=== PATIENT | male | born 1975 | race Caucasian/White ===

== ENCOUNTER 2016-12-04 00:09 | Inpatient (IN) | payer OTHER ==
[2016-12-04] VITALS (23 sets, daily range): BP systolic 120–182; BP diastolic 53–93; PULSE 72–181; RESP 16–25; TEMP 98–98.9; O2SAT 92–98
[~2016-12-04] VITALS: Ht 177.8 cm; Wt 139.1 kg
[2016-12-04] MEDS ORDERED: SODIUM CHLORIDE 0.9% FLUSH 10 ML FLUSH IVF PRN (00:30)
[2016-12-04] MEDS ORDERED: SODIUM CHLOR 0.9% 1000 ML INJ 1,000 ML IV ONE ×3 (00:30→04:45)
--- NOTE | 2016-12-04 00:36 | PD ---
HPI . Suicidal ideation and alcohol intoxication Chief Complaint: Psych Time Seen by Provider: 00:26 Travel History International Travel<30 days: No Contact w/Intl Traveler<30days: No History of Present Illness HPI This patient is brought to us as a Lopez Act. His papers indicate that he was texting with a friend elida stating that he was going to kill himself. He states that he would do this by putting a gun to his head and pulling the trigger. Police officers report multiple guns in the house. The patient admits to drinking a large amount of alcohol today. He states that he binge drinks. He states that he has suffered alcohol withdrawal before. He reports an "allergy" to Ativan in that he hallucinated after being given Ativan for alcohol withdrawal. His symptoms are severe in that he is suicidal and has access to guns. The modifying factor is that he is intoxicated. The patient reports that these symptoms are recurrent. The patient states that he has a history of paroxysmal AF. He feels that he has been in atrial fibrillation for the last couple of hours. He states that he is supposed to take atenolol for the atrial fibrillation but that they would not give it to him at [facility]. [facility] Social History Tobacco Use: No Allergies-Medications (Allergen,Severity, Reaction): Coded Allergies: lorazepam (Verified Allergy, Unknown, 12/04/16) states he hallucinates metformin (Verified Allergy, Unknown, 12/04/16) Review of Systems Except as stated in HPI: all other systems reviewed are Neg Psychiatric: Positive: Depression, Suicidal Ideations, Substance Abuse Physical Exam Narrative GENERAL: Patient is lucid. He does not appear to be in any distress. SKIN: warm/dry. HEAD: Normocephalic. Atraumatic. EYES: Pupils equal and round. No scleral icterus. No injection or drainage. ENT: No nasal bleeding or discharge. Mucous membranes pink and moist. NECK: Trachea midline. Full range of motion without pain.. CARDIOVASCULAR: Irregularly irregular rate and rhythm. RESPIRATORY: No accessory muscle use. GASTROINTESTINAL: Abdomen soft. Nondistended. MUSCULOSKELETAL: No obvious deformities. NEUROLOGICAL: Awake and alert. No obvious cranial nerve deficits. Motor grossly within normal limits. Normal speech. PSYCHIATRIC: He seems angry. He is intoxicated. He reports suicidal ideation. Data Data Last Documented VS Vital Signs Date Time Temp Pulse Resp B/P (MAP) Pulse Ox O2 Delivery O2 Flow Rate FiO2 12/04/16 00:36 181 93 Room Air 12/04/16 00:26 98.9 132/92 (105) Orders Orders Complete Blood Count With Diff (12/04/16 00:26) Comprehensive Metabolic Panel (12/04/16 00:26) Psych Screen (12/04/16:26) Sodium Chloride 0.9% Flush (Ns Flush) (12/04/16 00:30) Drug Screen, Random Urine (12/04/16:26) Alcohol (Ethanol) (12/04/16:26) Sodium Chlor 0.9% 1000 Ml Inj (Ns 1000 M (12/04/16 00:30) Sodium Chlor 0.9% 1000 Ml Inj (Ns 1000 M (12/04/16 00:30) Electrocardiogram (12/04/16 ) Metoprolol Tartrate Inj (Lopressor Inj) (12/04/16 00:45) Glipizide (Glucotrol) (12/04/16 08:00) Atenolol (Tenormin) (12/04/16 09:00) Lisinopril (Prinivil) (12/04/16 09:00) Clonidine (Catapres) (12/04/16 00:45) MDM Medical Decision Making Medical Screen Exam Complete: Yes Emergency Medical Condition: Yes Interpretation(s) EKG shows atrial fibrillation with a ventricular rate of 168. Differential Diagnosis Differential diagnosis includes but is not limited to depression with suicidal gesture, suicide attempt, suicidal ideation, attention seeking behavior. Narrative Course This patient was brought to us as a Lopez Act. He was initially taken to [facility]. He was treated there with Librium 25 mg by mouth, clonidine 0.1 mg by mouth and Vistaril 50 mg by mouth. That was done at 11:40 PM. He was out of their scope of practice. He was subsequently sent to us. Please see Percy Isaac PA-C's note for results of laboratory and radiographic evaluation, ED course, final diagnosis and disposition Diagnosis Primary Impression: Suicidal ideation Additional Impressions: Atrial fibrillation with rapid ventricular response Acute alcohol intoxication Qualified Codes: F10.929 - Alcohol use, unspecified with intoxication, unspecified Condition: Darlene Ramirez MD Dec 04, 2016 00:36
[2016-12-04] MEDS ORDERED: cloNIDine HCL 0.1 MG TAB PO PRN (00:45)
[2016-12-04] MEDS: METOPROLOL TARTRATE 5 MG/5 ML VIAL IV PUSH PRN ×3 (00:55→01:37)
[2016-12-04] MEDS ORDERED: ONDANSETRON HCL 4 MG/2 ML VIAL IV PUSH ONE ×2 (01:00→02:45)
[2016-12-04 01:15] LABS: AUTOMATED NEUTROPHIL # 10.1 TH/MM3 (1.8-7.7); BASOPHIL % 0.2 % (0.0-2.0); HEMATOCRIT 46.5 % (39.0-51.0); HEMO FLAGS DIFF FINAL; LYMPH % 7.5 % (9.0-44.0); LYMPHOCYTE # 0.9 TH/MM3 (1.0-4.8); MEAN CELL VOLUME 89.7 FL (80.0-100.0); MEAN CORPUSCULAR HEMOGLOBIN 30.9 PG (27.0-34.0); MEAN CORPUSCULAR HGB CONC 34.5 % (32.0-36.0); MONO % 4.5 % (0.0-8.0); NEUT % 87.8 % (16.0-70.0); PLATELET COUNT 162 TH/MM3 (150-450); RED BLOOD COUNT 5.19 MIL/MM3 (4.50-5.90); RED CELL DISTRIBUTION WIDTH 15.1 % (11.6-17.2); WHITE BLOOD COUNT 11.5 TH/MM3 (4.0-11.0)
[2016-12-04 01:31] LABS: ALKALINE PHOSPHATASE 107 U/L (45-117); TOTAL BILIRUBIN ADULT 1.4 MG/DL (0.2-1.0)
[2016-12-04 01:39] LABS: ALCOHOL 279 MG/DL (0-5); ALT (GPT) 114 U/L (12-78); ANION GAP 20 MEQ/L (5-15); AST (GOT) 175 U/L (15-37); BICARBONATE 18.1 MEQ/L (21.0-32.0); BLOOD UREA NITROGEN 12 MG/DL (7-18); CHLORIDE 96 MEQ/L (98-107); GLOMERULAR FILTRATION RATE 96 ML/MIN (>89); POTASSIUM 3.8 MEQ/L (3.5-5.1); SODIUM (NA) 134 MEQ/L (136-145)
[2016-12-04] MEDS ORDERED: ATENOLOL 25 MG TAB PO ONE (01:45)
--- NOTE | 2016-12-04 02:17 | PD ---
Physical Exam Date Seen by Provider: Dec 04, 2016 Time Seen by Provider: 02:15 Narrative GENERAL: This is a well-nourished, well-developed patient, in no apparent distress. SKIN: No rashes, ecchymoses or lesions. Warm and dry. HEAD: Atraumatic. Normocephalic. EYES: PERRL, EOMI, no discharge or injection. No scleral icterus. EARS: Clear NOSE: Nasal turbinates appear normal. THROAT: Mucosa pink and moist. Airway patent. NECK: Trachea midline. supple, moves head freely. LUNGS: Clear to auscultation. CV: Regular in rhythm. Tachycardic in rate. ABDOMEN: Soft nontender. No guarding or rebound. No masses. EXT: No clubbing cyanosis or edema. Data Data Last Documented VS Vital Signs Date Time Temp Pulse Resp B/P (MAP) Pulse Ox O2 Delivery O2 Flow Rate FiO2 12/04/16 03:50 130 18 136/64 (88) 98 Room Air 12/04/16 00:26 98.9 Orders Orders Complete Blood Count With Diff (12/04/16 00:26) Comprehensive Metabolic Panel (12/04/16 00:26) Psych Screen (12/04/16 00:26) Sodium Chloride 0.9% Flush (Ns Flush) (12/04/16 00:30) Drug Screen, Random Urine (12/04/16 00:26) Alcohol (Ethanol) (12/04/16 00:26) Sodium Chlor 0.9% 1000 Ml Inj (Ns 1000 M (12/04/16 00:30) Sodium Chlor 0.9% 1000 Ml Inj (Ns 1000 M (12/04/16 00:30) Electrocardiogram (12/04/16 ) Metoprolol Tartrate Inj (Lopressor Inj) (12/04/16 00:45) Glipizide (Glucotrol) (12/04/16 08:00) Atenolol (Tenormin) (12/04/16 09:00) Lisinopril (Prinivil) (12/04/16 09:00) Clonidine (Catapres) (12/04/16 00:45) Ondansetron Inj (Zofran Inj) (12/04/16 01:00) Atenolol (Tenormin) (12/04/16 01:45) Chlordiazepoxide (Librium) (12/04/16 02:45) Ondansetron Inj (Zofran Inj) (12/04/16 02:45) Aspirin (Aspirin) (12/04/16 03:15) Diltiazem Inj (Cardizem Inj) (12/04/16 03:15) Troponin I (12/04/16 03:17) Prothrombin Time / Inr (Pt) (12/04/16 03:17) Act Partial Throm Time (Ptt) (12/04/16 03:17) Thyroid Stimulating Hormone (12/04/16 03:17) Diltiazem Inj (Cardizem Inj) (12/04/16 04:00) Diltiazem Inj (Cardizem Inj) (12/04/16 04:15) Sodium Chloride 0.9% Flush (Ns Flush) (12/04/16 04:15) Sodium Chlor 0.9% 1000 Ml Inj (Ns 1000 M (12/04/16 04:45) Admit To Inpatient (12/04/16 ) Vital Signs (Adult) Q4H (12/04/16 04:53) Activity Oob With Assistance (12/04/16 04:53) Medical Office Secretary / Telemetry .CONTINUOUS (12/04/16 04:53) Diet Heart Healthy (12/04/16 Breakfast) Sodium Chloride 0.9% Flush (Ns Flush) (12/04/16 05:00) Sodium Chloride 0.9% Flush (Ns Flush) (12/04/16 09:00) Basic Metabolic Panel (Bmp) (12/05/16 06:00) Complete Blood Count With Diff (12/05/16 06:00) Creatine Kinase (Cpk) (12/04/16 07:00) Creatine Kinase (Cpk) (12/04/16 13:00) Troponin I (12/04/16 07:00) Troponin I (12/04/16 13:00) Electrocardiogram (12/04/16 07:00) Electrocardiogram (12/04/16 13:00) Case Management Consult (12/04/16 04:53) Naloxone Inj (Narcan Inj) (12/04/16 05:00) Inpatient Certification (12/04/16 ) Chlordiazepoxide (Librium) (12/04/16 09:00) ^ Etoh Withdrawal Precautions (12/04/16 04:56) Promethazine (Phenergan) (12/04/16 05:00) Bedside Glucose TIFFANY.CSUGAR (12/04/16 04:57) Blood Glucose Goal (Criteria) (12/04/16 04:57) Hypoglycemia 70 Mg/Dl Or < (12/04/16 04:57) Notify Dr: Other (12/04/16 04:57) Dextrose 50% In Danae (Vial) Inj (D50w (Vi (12/04/16 05:00) Glucagon Inj (Glucagon Inj) (12/04/16 05:00) Insulin Aspart Supplemtl Scale (Novolog (12/04/16 08:00) Admit Order (Ed Use Only) (12/04/16 04:58) Labs Laboratory Tests Test 12/04/16 01:00 12/04/16 02:42 12/04/16 03:30 White Blood Count 11.5 TH/MM3 Red Blood Count 5.19 MIL/MM3 Hemoglobin 16.0 GM/DL Hematocrit 46.5 % Mean Corpuscular Volume 89.7 FL Mean Corpuscular Hemoglobin 30.9 PG Mean Corpuscular Hemoglobin Concent 34.5 % Red Cell Distribution Width 15.1 % Platelet Count 162 TH/MM3 Mean Platelet Volume 7.8 FL Neutrophils (%) (Auto) 87.8 % Lymphocytes (%) (Auto) 7.5 % Monocytes (%) (Auto) 4.5 % Eosinophils (%) (Auto) 0.0 % Basophils (%) (Auto) 0.2 % Neutrophils # (Auto) 10.1 TH/MM3 Lymphocytes # (Auto) 0.9 TH/MM3 Monocytes # (Auto) 0.5 TH/MM3 Eosinophils # (Auto) 0.0 TH/MM3 Basophils # (Auto) 0.0 TH/MM3 CBC Comment DIFF FINAL Differential Comment Blood Urea Nitrogen 12 MG/DL Creatinine 0.88 MG/DL Random Glucose 132 MG/DL Total Protein 8.6 GM/DL Albumin 4.3 GM/DL Calcium Level 7.9 MG/DL Alkaline Phosphatase 107 U/L Aspartate Amino Transf (AST/SGOT) 175 U/L Alanine Aminotransferase (ALT/SGPT) 114 U/L Total Bilirubin 1.4 MG/DL Sodium Level 134 MEQ/L Potassium Level 3.8 MEQ/L Chloride Level 96 MEQ/L Carbon Dioxide Level 18.1 MEQ/L Anion Gap 20 MEQ/L Estimat Glomerular Filtration Rate 96 ML/MIN Troponin I 0.02 NG/ML Thyroid Stimulating Hormone 3rd Gen 0.840 uIU/ML Ethyl Alcohol Level 279 MG/DL Urine Opiates Screen NEG Urine Barbiturates Screen NEG Urine Amphetamines Screen NEG Urine Benzodiazepines Screen NEG Urine Cocaine Screen NEG Urine Cannabinoids Screen NEG Prothrombin Time 11.0 SEC Prothromb Time International Ratio 1.0 RATIO Activated Partial Thromboplast Time 25.0 SEC [facility] Medical Record Reviewed: Yes Supervised Visit with LIN: Yes Interpretation(s) CBC & BMP Diagram 12/04/16 01:00 Total Protein 8.6 H, Albumin 4.3, Calcium Level 7.9 L, Alkaline Phosphatase 107 , Aspartate Amino Transf (AST/SGOT) 175 H, Alanine Aminotransferase (ALT/SGPT) 114 H, Total Bilirubin 1.4 H Differential Diagnosis . Narrative Course IV access is obtained. Patient is placed on a stave block roller. The patient had been given 3 doses of Lopressor 5 mg every [address] BLANK and this was followed by a oral dose of atenolol 25 mg. The patient was given a total of 2 L normal saline. The patient given Librium 50 mg by mouth. The patient was given a total of 8 mg of Zofran IV for nausea. He was then given a final dose of Phenergan 25 mg by mouth. Unfortunately the patient's heart rate has not come down significantly. He still running a heart rate in the 130s to 150s. The patient is then given 2 doses of Cardizem 10 mg each which only momentarily brings his heart rate down close to 100.. The patient is started on a Cardizem drip. It was noted that his blood pressure was trending. The case has been discussed with who has agreed to admit the the patient to CCU. She is aware that he is on a Cardizem drip. He is also under Lopez act in a sitter will be ordered. Diagnosis Primary Impression: Suicidal ideation Additional Impressions: Acute alcohol intoxication Qualified Codes: F10.929 - Alcohol use, unspecified with intoxication, unspecified Atrial fibrillation with rapid ventricular response Condition: Stable Jose Isaac Dec 04, 2016 02:17
[2016-12-04] MEDS ORDERED: chlordiazePOXIDE 25 MG CAP PO ONE (02:45)
[2016-12-04] MEDS ORDERED: ASPIRIN 325 MG TAB PO ONE (03:15)
[2016-12-04] MEDS ORDERED: DILTIAZEM HCL 25 MG/5 ML VIAL IV ONE ×2 (03:15→04:00)
[2016-12-04] MEDS ORDERED: SODIUM CHLORIDE 0.9% FLUSH 5 ML FLUSH IV FLUSH PRN (04:15)
[2016-12-04] MEDS ORDERED: DILTIAZEM INJ 125 MG in SODIUM CHLORIDE 0.9% INJ 100 ML IV PRN (04:15)
[2016-12-04] MEDS ORDERED: GLIP1TAB49 PO (04:55)
[2016-12-04] MEDS ORDERED: LISI2.5T3 PO (04:55)
[2016-12-04] MEDS ORDERED: ATEN25TA PO (04:55)
[2016-12-04] MEDS ORDERED: SIMV5TAB3 PO (04:55)
[2016-12-04] MEDS ORDERED: DEXTROSE 50% IN WATER 50 ML VIAL(D50) IV PUSH PRN (05:00)
[2016-12-04] MEDS ORDERED: NALOXONE HCL 0.4 MG/ML AMP IV PUSH PRN (05:00)
[2016-12-04] MEDS ORDERED: GLUCAGON 1 MG/ML VIAL OTHER PRN (05:00)
[2016-12-04] MEDS ORDERED: SODIUM CHLORIDE 0.9% FLUSH 10 ML FLUSH IV FLUSH PRN (05:00)
[2016-12-04] MEDS ORDERED: PROMETHAZINE HCL 25 MG TAB PO ONE (05:00)
[2016-12-04] MEDS: INSULIN ASPART SUPPLEMENTAL SCALE SQ SCH ×4 (08:00→22:30)
[2016-12-04] MEDS: glipiZIDE 5 MG TAB PO SCH (08:00)
[2016-12-04 08:22] LABS: CKMB 8.4 NG/ML (0.5-3.6)
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
[2016-12-04] MEDS: chlordiazePOXIDE 25 MG CAP PO SCH ×3 (08:55→17:45)
[2016-12-04] MEDS: ATENOLOL 25 MG TAB PO SCH (08:55)
[2016-12-04] MEDS: SODIUM CHLORIDE 0.9% FLUSH 10 ML FLUSH IV FLUSH SCH ×2 (09:00→21:00)
[2016-12-04] MEDS: LISINOPRIL 10 MG TAB PO SCH (09:00)
--- NOTE | 2016-12-04 12:12 | EKG ---
Date Performed: 12/04/2016 Time Performed: 00:48:32 PTAGE: 41 years EKG: ATRIAL FIBRILLATION WITH RAPID VENTRICULAR RESPONSE ABNORMAL RHYTHM ECG NO PREVIOUS TRACING DOCTOR: Grace Ritter Interpretating Date/Time 12/04/2016 12:09:47
--- NOTE | 2016-12-04 13:06 | HHI.HP ---
HPI Service [facility] ([place], [place])ists Primary Care Physician No Primary Care Physician Admission Diagnosis A FIB WITH RVR,HTN,DM,BA Diagnoses: Chief Complaint: suicidal ideation and alcohol intoxication/abuse Travel History International Travel<30 Days: No Contact w/Intl Traveler <30 Da: No Traveled to Known Affected Are: No History of Present Illness Pleasant 41yo male with PMH of DM, GERD, depression/anxiety, chronic EtOH use, tobaccoism, paroxysmal Afib who was brought in as a Lopez Act. Patient has extensive history of alcohol abuse, paroxysmal Afib, and recent significant life stressors. Facility papers indicate that he was texting a friend stating that he was going to kill himself tonight with a use of a gun. Police reports indicate presence of multiple guns in patient's home. Patient reports that he has a 20yr history of alcohol abuse with his first binge drinking episode starting at age 22, which was triggered by him finding out that his sister was using heroine on . He reports 2 episodes of binge drinking in the past year, one in April around his birthday and the most recent one lasting from Thursday to Thu (11/30- 12/03), which was triggered by his 11yo daughter having to go back home with his on/off girlfriend and losing his 100k/yr job of 10yrs. He reports consuming about 6-7L of liquor and wine during this time period. Last reported drink was 12/03 at 11am. He reports inconsistent AA meeting attendance and multiple attempts for rehabilitation with the most recent on in July-August in a facility in [place]. Pt. reports headache, chills, chest pain described as pressure like, chest tightness, that comes and goes, difficulty breathing, palpitations, lightheadedness, dizziness, sore throat, and bilious vomiting. Denies blood in vomitus, cough, fever, abdominal pain, blood in urine or stool. Patient was found with Afib with RVR and was started ion cardizem drip. Patient was admitted for further eval and monitoring. Patient says he had an ECHO and a cardiac cath 5 years ago and were mnormal. He also has intermittent Afib EtOH related. He says sob and chest discomfort improved some, however he feel nauseated at this time. He also reports visual hallucinations. Review of Systems Except as stated in HPI: all other systems reviewed are Neg Past Family Social History Past Medical History Diabetes mellitus, hypertension, dyslipidemia, sleep apnea with 10yr CPAP use, paroxysmal atrial fib Past Surgical History Left knee reconstruction after hatchet injury Reported Medications Reported Meds & Active Scripts Active Reported Atenolol 25 Mg Tab 25 Mg PO BID Simvastatin 5 Mg Tab 5 Mg PO DAILY Lisinopril 2.5 Mg Tab Unknown Dose PO DAILY Glipizide ER (Glipizide) 5 Mg Jimmy 5 Mg PO DAILY Take with breakfast or first main meal of the day. Allergies: Coded Allergies: lorazepam (Verified Allergy, Unknown, 12/04/16) states he hallucinates metformin (Verified Allergy, Unknown, 12/04/16) Family History Mother from suicide. father had protein C deficiency and from an [place], sister from heroine overdose Social History Reports alcohol binges where intake varies greatly, reports 2ppd on/off tobacco use since 19yo. Denies IV drug use, reports history of marijuana and cocaine use , last cocaine use was 1-2yrs ago. Currently sexually active with 2 partners with irregular condom use. Reports receiving STI and HIV testing this past summer with negative results. Denies h/o STI's or positive HIV test result. Physical Exam Vital Signs Vital Signs Date Time Temp Pulse Resp B/P (MAP) Pulse Ox O2 Delivery O2 Flow Rate FiO2 12/04/16 12:00 98.4 80 25 137/74 (95) 97 12/04/16 12:00 80 12/04/16 10:00 72 12/04/16 09:13 12/04/16 08:49 79 21 93 12/04/16 06:58 133 24 120/62 (81) 96 Room Air 12/04/16 06:15 143 20 121/79 (93) 96 12/04/16 05:35 133 18 127/62 (83) 96 Room Air 12/04/16 05:04 151 119/58 12/04/16 03:50 130 18 136/64 (88) 98 Room Air 12/04/16 03:38 150 18 149/85 (106) 98 Room Air 12/04/16 01:54 144 18 153/63 (93) 94 Room Air 12/04/16 01:38 147 18 148/81 (103) 94 Room Air 12/04/16 01:21 156 18 124/93 (103) 94 Room Air 12/04/16 00:36 181 93 Room Air 12/04/16 00:36 174 12/04/16 00:26 98.9 174 132/92 (105) 92 Physical Exam GENERAL: This is a pleasant morbidity obese male, well-nourished, well- developed patient, in no apparent distress. SKIN: No rashes, ecchymoses or lesions. Cool and dry. HEAD: Atraumatic. Normocephalic. No temporal or scalp tenderness. EYES: Pupils equal round and reactive. Extraocular motions intact. No scleral icterus. No injection or drainage. ENT: Nose without bleeding, purulent drainage or septal hematoma. Throat without erythema, tonsillar hypertrophy or exudate. Uvula midline. Airway patent. NECK: Trachea midline. No JVD or lymphadenopathy. Supple, nontender, no meningeal signs. CARDIOVASCULAR: Irregularly irregular rate and rhythm without murmurs, gallops , or rubs. RESPIRATORY: Clear to auscultation. Breath sounds equal bilaterally. No wheezes , rales, or rhonchi. GASTROINTESTINAL: Abdomen soft, obese, non-tender, nondistended. No hepato- splenomegaly, or palpable masses. No guarding. MUSCULOSKELETAL: Extremities without clubbing, cyanosis, or edema. No joint tenderness, effusion, or edema noted. No calf tenderness. Negative Homans sign bilaterally. NEUROLOGICAL: Awake and alert. Cranial nerves II through XII intact. Motor and sensory grossly within normal limits. Five out of 5 muscle strength in all muscle groups. Normal speech. Laboratory Laboratory Tests Test 12/04/16 01:00 12/04/16 02:42 12/04/16 03:30 12/04/16 07:00 White Blood Count 11.5 Red Blood Count 5.19 Hemoglobin 16.0 Hematocrit 46.5 Mean Corpuscular Volume 89.7 Mean Corpuscular Hemoglobin 30.9 Mean Corpuscular Hemoglobin Concent 34.5 Red Cell Distribution Width 15.1 Platelet Count 162 Mean Platelet Volume 7.8 Neutrophils (%) (Auto) 87.8 Lymphocytes (%) (Auto) 7.5 Monocytes (%) (Auto) 4.5 Eosinophils (%) (Auto) 0.0 Basophils (%) (Auto) 0.2 Neutrophils # (Auto) 10.1 Lymphocytes # (Auto) 0.9 Monocytes # (Auto) 0.5 Eosinophils # (Auto) 0.0 Basophils # (Auto) 0.0 CBC Comment DIFF FINAL Differential Comment Blood Urea Nitrogen 12 Creatinine 0.88 Random Glucose 132 Total Protein 8.6 Albumin 4.3 Calcium Level 7.9 Alkaline Phosphatase 107 Aspartate Amino Transf (AST/SGOT) 175 Alanine Aminotransferase (ALT/SGPT) 114 Total Bilirubin 1.4 Sodium Level 134 Potassium Level 3.8 Chloride Level 96 Carbon Dioxide Level 18.1 Anion Gap 20 Estimat Glomerular Filtration Rate 96 Troponin I 0.02 0.02 Thyroid Stimulating Hormone 3rd Gen 0.840 Ethyl Alcohol Level 279 Urine Opiates Screen NEG Urine Barbiturates Screen NEG Urine Amphetamines Screen NEG Urine Benzodiazepines Screen NEG Urine Cocaine Screen NEG Urine Cannabinoids Screen NEG Prothrombin Time 11.0 Prothromb Time International Ratio 1.0 Activated Partial Thromboplast Time 25.0 Total Creatine Kinase 2280 Creatine Kinase MB 8.4 Creatine Kinase MB % 0.4 Result Diagram: 12/04/169912/04/1699 Caprini VTE Risk Assessment Caprini VTE Risk Assessment: Mod/High Risk (score >= 2) Caprini Risk Assessment Model Point Value = 1 Point Value = 2 Point Value = 3 Point Value = 5 Age 41-60 Minor surgery BMI > 25 kg/m2 Swollen legs Varicose veins or History of unexplained or recurrent spontaneous Oral contraceptives or hormone replacement Sepsis (< 1 month) Serious lung disease, including pneumonia (< 1 month) Abnormal pulmonary function Acute myocardial infarction Congestive heart failure (< 1 month) History of inflammatory bowel disease Medical patient at bed rest Age 61-74 Arthroscopic surgery Major open surgery (> 45 min) Laparoscopic surgery (> 45 min) Malignancy Confined to bed (> 72 hours) Immobilizing plaster cast Central venous access Age >= 75 History of VTE Family history of VTE Factor V Leiden Prothrombin [id number] Lupus anticoagulant Anticardiolipin antibodies Elevated serum homocysteine Heparin-induced thrombocytopenia Other congenital or acquired thrombophilia Stroke (< 1 month) Elective arthroplasty Hip, pelvis, or leg fracture Acute spinal cord injury (< 1 month) Prophylaxis Regimen Total Risk Factor Score Risk Level Prophylaxis Regimen 0-1 Low Early ambulation 2 Moderate Order ONE of the following: *Sequential Compression Device (SCD) *Heparin 5000 units SQ BID 3-4 Higher Order ONE of the following medications: *Heparin 5000 units SQ TID *Enoxaparin/Lovenox 40 mg SQ daily (WT < 150 kg, CrCl > 30 mL/min) *Enoxaparin/Lovenox 30 mg SQ daily (WT < 150 kg, CrCl > 10-29 mL/min) *Enoxaparin/Lovenox 30 mg SQ BID (WT < 150 kg, CrCl > 30 mL/min) AND/OR *Sequential Compression Device (SCD) 5 or more Highest Order ONE of the following medications: *Heparin 5000 units SQ TID (Preferred with Epidurals) *Enoxaparin/Lovenox 40 mg SQ daily (WT < 150 kg, CrCl > 30 mL/min) *Enoxaparin/Lovenox 30 mg SQ daily (WT < 150 kg, CrCl > 10-29 mL/min) *Enoxaparin/Lovenox 30 mg SQ BID (WT < 150 kg, CrCl > 30 mL/min) AND *Sequential Compression Device (SCD) Assessment and Plan Assessment and Plan 41yo male with PMH of DM, GERD, depression/anxiety, chronic EtOH use, tobaccoism, paroxysmal Afib who was brought in as a Lopez Act. Patient with SI. Also was found with Afib with RVR Alcohol Abuse with withdrawal symptoms- stable, ciwa protocol, allergic to lorazepam, on librium per CIWA protocol, monitor for symptoms of DT, discussed hazards. EtOH use, tobacco use, h/o IVD use. Counseled regarding EtOH use, illicit drug use and tobacco use. Nausea/Vomiting. Antiemetics as need. Mild Hyponatremia: Na 134 on admission, received bolus NS in the ED, continue IVF. Monitor Na for fast correction. Anion gap 20 , metabolic acidosis with AG 20 . Monitor BMP Rhabdomyolysis. CPK is 2280 on admission. Monitor CPK. Continue IVF. Monitor closely kidney function Transaminitis likely 2/2 EtOH use, check hep profile. Monitor LFT. Do liver US Suicidal Ideation- BA. Not suicidal at this time, consult psych Afib with RVR- patient also has a h/o Afib EtOH indiced. Patient had a normal ECHO and stress test 5 years ago. He was stsrted on IV cardizem, monitor telemetry, will transition to PO cardizem. Turn on cardizem drip if persistent HR> 110 , turn off cardizem drip if perisitent HR< 90. Add cardizem po. Monitor on telemetry, will order 2D ECHO. Trops negx2 . Monitor trops TSH normal Hypocalcemia Ca of 7.9, normal albumin. Will give Diabetes Mellitus- continue home meds, monitor blood glucose. ISS, accu checks Dyslipidemia- continue home meds Morbid obesity: BMI of 43. Diet and exercise. 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 To f/u as OP with PCP DVT popx SCD/TEDs Discussed Condition With patient. ICU nurse Physician Certification 2 Midnight Certification Type: Admission for Inpatient Services Order for Inpatient Services The services are ordered in accordance with Medicare regulations or non- Medicare payer requirements, as applicable. In the case of services not specified as inpatient-only, they are appropriately provided as inpatient services in accordance with the 2-midnight benchmark. Estimated LOS (days): 3 days is the estimated time the patient will need to remain in the hospital, assuming treatment plan goals are met and no additional complications. Post-Hospital Plan: Home Bridget Morrison MD Dec 04, 2016 13:06
[2016-12-04] MEDS: PROMETHAZINE HCL 25 MG TAB PO PRN (13:20)
[2016-12-04] MEDS: DILTIAZEM HCL 30 MG TAB PO SCH ×2 (13:20→18:36)
--- NOTE | 2016-12-04 14:59 | EKG ---
Date Performed: 12/04/2016 Time Performed: 06:54:40 PTAGE: 41 years EKG: ATRIAL FIBRILLATION WITH RAPID VENTRICULAR RESPONSE ABNORMAL RHYTHM ECG PREVIOUS TRACING : 12/04/2016 00.48 No significant change from previous tracing noted. DOCTOR: Aung Tabor Interpretating Date/Time 12/04/2016 14:58:57
[2016-12-04 15:41] LABS: CREATINE KINASE 2509 U/L (39-308)
--- NOTE | 2016-12-04 15:51 | RADRPT ---
EXAM DATE/TIME: 12/04/2016 14:49 [facility] COMPARISON: No previous studies available for comparison. INDICATIONS : Increased lab values. MEDICAL HISTORY : Diabetes mellitus type 2. Hypertension. Hyperlipidemia. Afib. Sleep apnea. Depression. SURGICAL HISTORY : Left knee surgery as a child. ENCOUNTER: Initial ACUITY: 1 day PAIN SCORE: 4/10 LOCATION: Bilateral upper quadrant MEASUREMENTS: LIVER: 19.9 cm length COMMON DUCT: 4 mm RIGHT KIDNEY: 12.9 x 6.8 x 6.7 cm SPLEEN: 9.6 cm length FINDINGS: LIVER: Liver is enlarged and demonstrates a coarse heterogeneous hyperechoic texture. There are no focal spa ce-occupying lesions or evidence of biliary duct dilatation. Portal vein is patent. COMMON DUCT: No intraluminal mass or stone visualized. GALLBLADDER: Contains no stones, demonstrates no wall thickening or pericholecystic fluid. PANCREAS: The visualized portions are within normal limits. RIGHT KIDNEY: No hydronephrosis, stone or mass. SPLEEN: No focal lesion. CONCLUSION: 1. Hepatomegaly with hyperechoic echotexture characteristic of steatosis. 2. No evidence of cholelithiasis or biliary obstructive disease. 3. Incomplete visualization of the pancreas. Louie Lau MD on December 04, 2016 at 15:47 Board Certified Radiologist. This report was verified electronically.
[2016-12-04 16:05] LABS: CKMB 9.2 NG/ML (0.5-3.6)
[2016-12-04 17:36] LABS: BICARBONATE 15.4 MEQ/L (21.0-32.0)
[2016-12-04 17:39] LABS: POTASSIUM 3.5 MEQ/L (3.5-5.1)
[2016-12-04 18:14] LABS: CALCIUM-PROTEIN CORRECTED 7.3 MG/DL (8.5-10.1)
[2016-12-04] MEDS ORDERED: METOCLOPRAMIDE HCL 10 MG/2 ML VIAL IV PUSH PRN (18:15)
[2016-12-04] MEDS ORDERED: chlordiazePOXIDE 25 MG CAP PO PRN (18:15)
[2016-12-04] MEDS: SODIUM CHLOR 0.9% 1000 ML INJ 1,000 ML IV SCH (18:37)
[2016-12-04] MEDS ORDERED: CALCIUM GLUCONATE INJ 2 GM in DEXTROSE 5% IN WATER 100ML INJ 100 ML IV ONE ×2 (20:00)
[2016-12-05] VITALS (18 sets, daily range): BP systolic 130–161; BP diastolic 78–84; PULSE 70–103; RESP 16–18; TEMP 98.4–98.5; O2SAT 97–98
[2016-12-05] MEDS: DILTIAZEM HCL 30 MG TAB PO SCH ×4 (00:42→17:37)
[2016-12-05] MEDS ORDERED: traMADol HCL 50 MG TAB PO ONE (01:15)
[2016-12-05] MEDS ORDERED: diphenhydrAMINE HCL 25 MG CAP PO ONE (01:15)
[2016-12-05] MEDS: BENZOCAINE 6 MG/MENTHOL 10 MG LOZENGE BUCCAL PRN ×2 (01:34→08:36)
[2016-12-05] MEDS: PROMETHAZINE HCL 25 MG TAB PO PRN ×2 (06:40→12:03)
[2016-12-05] MEDS: SODIUM CHLOR 0.9% 1000 ML INJ 1,000 ML IV SCH ×2 (07:00→14:15)
[2016-12-05 07:57] LABS: AUTOMATED NEUTROPHIL # 5.4 TH/MM3 (1.8-7.7); BASOPHIL % 0.4 % (0.0-2.0); EOSINOPHIL % 0.7 % (0.0-4.0); HEMATOCRIT 45.9 % (39.0-51.0); LYMPH % 13.6 % (9.0-44.0); MEAN CELL VOLUME 91.4 FL (80.0-100.0); MEAN CORPUSCULAR HEMOGLOBIN 31.4 PG (27.0-34.0); MEAN CORPUSCULAR HGB CONC 34.3 % (32.0-36.0); MONO % 10.4 % (0.0-8.0); NEUT % 74.9 % (16.0-70.0); PLATELET COUNT 76 TH/MM3 (150-450); RED BLOOD COUNT 5.02 MIL/MM3 (4.50-5.90); RED CELL DISTRIBUTION WIDTH 14.8 % (11.6-17.2); WHITE BLOOD COUNT 7.2 TH/MM3 (4.0-11.0)
[2016-12-05] MEDS: INSULIN ASPART SUPPLEMENTAL SCALE SQ SCH ×3 (08:00→17:00)
[2016-12-05] MEDS: LISINOPRIL 10 MG TAB PO SCH (08:35)
[2016-12-05] MEDS: ATENOLOL 25 MG TAB PO SCH (08:35)
[2016-12-05] MEDS: chlordiazePOXIDE 25 MG CAP PO SCH ×3 (08:36→17:37)
[2016-12-05] MEDS: SODIUM CHLORIDE 0.9% FLUSH 10 ML FLUSH IV FLUSH SCH (08:36)
[2016-12-05] MEDS: glipiZIDE 5 MG TAB PO SCH (08:36)
--- NOTE | 2016-12-05 08:39 | HHI.PR ---
Subjective Remarks n the chair. He was ambulating to the [facility] [place]. Less pain.cramps in his legs, abd and arms. Was nauseated yesterday and not able to keep down much. Less nauseated today morning. Will try to eat. Had diarrhea x1 time. No fevr or chills. no palpitations, no chest pain /pressure. No sob. Feels much better. Encourage PO intake. Objective Vitals Vital Signs Date Time Temp Pulse Resp B/P (MAP) Pulse Ox O2 Delivery O2 Flow Rate FiO2 12/05/16 06:00 76 12/05/16 05:00 90 12/05/16 04:00 80 12/05/16 03:00 82 12/05/16 03:00 81 16 154/78 (103) 97 12/05/16 02:39 16 12/05/16 02:00 102 12/05/16 01:00 76 12/05/16 00:00 82 12/04/16 23:30 86 18 182/88 (119) 97 12/04/16 23:00 72 12/04/16 22:00 80 12/04/16 21:00 86 12/04/16 20:00 95 Room Air 12/04/16 20:00 98.0 85 16 157/69 (98) 95 12/04/16 19:00 76 12/04/16 18:00 76 12/04/16 16:32 98.1 81 16 138/53 (81) 96 12/04/16 16:30 Room Air 12/04/16 16:00 86 12/04/16 14:00 74 12/04/16 12:00 98.4 80 25 137/74 (95) 97 12/04/16 12:00 80 12/04/16 10:00 72 12/04/16 09:13 12/04/16 08:49 79 21 93 I/O 12/04/16 12/04/16 12/04/16 12/05/16 12/05/16 12/05/16 07:00 15:00 23:00 07:00 15:00 23:00 Intake Total 3000 ml 480 ml 600 ml Output Total 450 ml 1400 ml Balance 3000 ml 30 ml -800 ml Intake Oral 480 ml 600 ml IV Total 3000 ml Output Urine Total 450 ml 1400 ml Result Diagram: 12/04/16 0100 12/04/16 1323 Imaging Last Impressions Liver Ultrasound 12/04/16 0000 Signed Impressions: Service Date/Time: November 14:49 - CONCLUSION: 1. Hepatomegaly with hyperechoic echotexture characteristic of steatosis. 2. No evidence of cholelithiasis or biliary obstructive disease. 3. Incomplete visualization of the pancreas. Louie Lau MD Objective Remarks GENERAL: This is a pleasant morbidity obese male, well-nourished, well- developed patient, in no apparent distress. CARDIOVASCULAR: Irregularly irregular rate and rhythm without murmurs, gallops , or rubs. RESPIRATORY: Clear to auscultation. Breath sounds equal bilaterally. No wheezes , rales, or rhonchi. GASTROINTESTINAL: Abdomen soft, obese, non-tender, nondistended. No hepato- splenomegaly, or palpable masses. No guarding. MUSCULOSKELETAL: Extremities without clubbing, cyanosis, or edema. No joint tenderness, effusion, or edema noted. No calf tenderness. Negative Homans sign bilaterally. NEUROLOGICAL: Awake and alert. Cranial nerves II through XII intact. Motor and sensory grossly within normal limits. Five out of 5 muscle strength in all muscle groups. Normal speech. A/P Assessment and Plan 41yo male with PMH of DM, GERD, depression/anxiety, chronic EtOH use, tobaccoism, paroxysmal Afib who was brought in as a Lopez Act. Patient with SI. Also was found with Afib with RVR Alcohol Abuse with withdrawal symptoms- stable, ciwa protocol, allergic to lorazepam, on librium per CIWA protocol, monitor for symptoms of DT, discussed hazards. EtOH use, tobacco use, h/o IVD use. Counseled regarding EtOH use, illicit drug use and tobacco use. Nausea/Vomiting. Antiemetics as need. Mild Hyponatremia: Na 134 on admission, received bolus NS in the ED, continue IVF. Monitor Na for fast correction. Anion gap 20 , metabolic acidosis with AG 20 . Monitor BMP Rhabdomyolysis. CPK is 2280 on admission. Monitor CPK. Continue IVF. Monitor closely kidney function Transaminitis likely 2/2 EtOH use, check hep profile. Monitor LFT. Do liver US Suicidal Ideation- BA. Not suicidal at this time, consult psych Afib with RVR 2/2 EtOH use converted to NSR yesterday - patient also has a h/o Paroxysmal Afib EtOH induced. Patient had a normal ECHO and stress test 5 years ago. He was started on IV cardizem, monitor telemetry, will transition to PO cardizem. Turn on cardizem drip if persistent HR> 110 , turn off cardizem drip if perisitent HR< 90. Add cardizem po. Monitor on telemetry, will order 2D ECHO. Trops negx2 . Monitor trops TSH normal Hypocalcemia Ca of 7.9, normal albumin. Will give Diabetes Mellitus- continue home meds, monitor blood glucose. ISS, accu checks Dyslipidemia- continue home meds Morbid obesity: BMI of 43. Diet and exercise. 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 To f/u as OP with PCP CHAPARRITA mena SCD/TEDs Discussed Condition With patient. nurse Patient is cleared medically for DC. Spoke with Dr Bojorquez. Lopez Act was lifted. Patient is not suicidal has a sponsor and also plans for detox. Wants ot go home. Discharge Planning DC home in stable condition. To follow up as OP with PCP and consultants. Diet Healthy heart and Diabetic diet. Stop drinking alcohol, smoking cessation, dietary modifications,. Activity ad parminder as tolerated Meds per med reconciliations Bridget Morrison MD Dec 05, 2016 08:39
[2016-12-05] MEDS ORDERED: DILT31TA PO (08:43)
[2016-12-05] MEDS ORDERED: PROM25TA10 PO (08:43)
[2016-12-05] MEDS ORDERED: CHLO25CA9 PO (08:43)
--- NOTE | 2016-12-05 08:43 | HHI.DCPOC ---
Discharge Care Plan Goals to Promote Your Health * To prevent worsening of your condition and complications * To maintain your health at the optimal level Directions to Meet Your Goals Take your medications as prescribed Follow your dietary instruction Follow activity as directed Keep your appointments as scheduled Take your immunizations and boosters as scheduled If your symptoms worsen call your PCP, if no PCP go to Urgent Care Center or Emergency Room Smoking is Dangerous to Your Health. Avoid second hand smoke Call the 24-hour hour crisis hotline for domestic abuse at Bridget Morrison MD Dec 05, 2016 08:43
[2016-12-05 08:46] LABS: ALKALINE PHOSPHATASE 97 U/L (45-117); ALT (GPT) 117 U/L (12-78); ANION GAP 19 MEQ/L (5-15); AST (GOT) 145 U/L (15-37); BICARBONATE 12.1 MEQ/L (21.0-32.0); BLOOD UREA NITROGEN 7 MG/DL (7-18); CHLORIDE 102 MEQ/L (98-107); GLOMERULAR FILTRATION RATE 119 ML/MIN (>89); POTASSIUM 3.6 MEQ/L (3.5-5.1); SODIUM (NA) 133 MEQ/L (136-145); TOTAL BILIRUBIN ADULT 1.6 MG/DL (0.2-1.0)
[2016-12-05 08:51] LABS: HEMO FLAGS AUTO DIFF
[2016-12-05 08:52] LABS: SCAN/DIFF AUTO DIFF CONFIRMED
--- NOTE | 2016-12-05 09:10 | PD.PN.STU ---
Subjective Remarks 41y male who was brought in the ER (12/04) as a Lopez Act for suicidal ideation and alcohol intoxication. He reports consuming about 6-7L of liquor and wine from Thursday to Thu (11/30-12/03). Today he reports feeling much better overall but still c/o SOB, lightheadedness, nausea, LBP, muscle aches, sore throat, bloody gums when brushing his teeth, diarrhea, numbness and tingling in the finger and toes. Denies CP, HUNG, palpitations, cough, diaphoresis , blood in the urine/stool, fever, and chills. Objective Vitals Vital Signs Date Time Temp Pulse Resp B/P (MAP) Pulse Ox O2 Delivery O2 Flow Rate FiO2 12/05/16 09:00 98 12/05/16 08:00 91 12/05/16 07:00 93 12/05/16 07:00 98.4 103 18 161/84 (109) 97 12/05/16 07:00 97 Room Air 12/05/16 06:00 76 12/05/16 05:00 90 12/05/16 04:00 80 12/05/16 03:00 82 12/05/16 03:00 81 16 154/78 (103) 97 12/05/16 02:39 16 12/05/16 02:00 102 12/05/16 01:00 76 12/05/16 00:00 82 12/04/16 23:30 86 18 182/88 (119) 97 12/04/16 23:00 72 12/04/16 22:00 80 12/04/16 21:00 86 12/04/16 20:00 95 Room Air 12/04/16 20:00 98.0 85 16 157/69 (98) 95 12/04/16 19:00 76 12/04/16 18:00 76 12/04/16 16:32 98.1 81 16 138/53 (81) 96 12/04/16 16:30 Room Air 12/04/16 16:00 86 12/04/16 14:00 74 12/04/16 12:00 98.4 80 25 137/74 (95) 97 12/04/16 12:00 80 12/04/16 10:00 72 12/04/16 09:13 I/O 12/04/16 12/04/16 12/04/16 12/05/16 12/05/16 12/05/16 07:00 15:00 23:00 07:00 15:00 23:00 Intake Total 3000 ml 480 ml 600 ml Output Total 450 ml 1400 ml Balance 3000 ml 30 ml -800 ml Intake Oral 480 ml 600 ml IV Total 3000 ml Output Urine Total 450 ml 1400 ml Result Diagram: 12/05/1644 12/05/1644 Other Results Vital Signs Date Time Temp Pulse Resp B/P (MAP) Pulse Ox O2 Delivery O2 Flow Rate FiO2 12/05/16 09:00 98 12/05/16 08:00 91 12/05/16 07:00 93 12/05/16 07:00 98.4 103 18 161/84 (109) 97 12/05/16 07:00 97 Room Air 12/05/16 06:00 76 12/05/16 05:00 90 12/05/16 04:00 80 12/05/16 03:00 82 12/05/16 03:00 81 16 154/78 (103) 97 12/05/16 02:39 16 12/05/16 02:00 102 12/05/16 01:00 76 12/05/16 00:00 82 12/04/16 23:30 86 18 182/88 (119) 97 12/04/16 23:00 72 12/04/16 22:00 80 12/04/16 21:00 86 12/04/16 20:00 95 Room Air 12/04/16 20:00 98.0 85 16 157/69 (98) 95 12/04/16 19:00 76 12/04/16 18:00 76 12/04/16 16:32 98.1 81 16 138/53 (81) 96 12/04/16 16:30 Room Air 12/04/16 16:00 86 12/04/16 14:00 74 12/04/16 12:00 98.4 80 25 137/74 (95) 97 12/04/16 12:00 80 12/04/16 10:00 72 Laboratory Tests Test 12/04/16 01:00 12/04/16 02:42 12/04/16 03:30 12/04/16 07:00 White Blood Count 11.5 TH/MM3 (4.0-11.0) Neutrophils (%) (Auto) 87.8 % (16.0-70.0) Lymphocytes (%) (Auto) 7.5 % (9.0-44.0) Neutrophils # (Auto) 10.1 TH/MM3 (1.8-7.7) Lymphocytes # (Auto) 0.9 TH/MM3 (1.0-4.8) Random Glucose 132 MG/DL (74-106) Total Protein 8.6 GM/DL (6.4-8.2) Calcium Level 7.9 MG/DL (8.5-10.1) Aspartate Amino Transf (AST/SGOT) 175 U/L (15-37) Alanine Aminotransferase (ALT/SGPT) 114 U/L (12-78) Total Bilirubin 1.4 MG/DL (0.2-1.0) Sodium Level 134 MEQ/L (136-145) Chloride Level 96 MEQ/L (98-107) Carbon Dioxide Level 18.1 MEQ/L (21.0-32.0) Anion Gap 20 MEQ/L (5-15) Ethyl Alcohol Level 279 MG/DL (0-5) Total Creatine Kinase 2280 U/L (39-308) Creatine Kinase MB 8.4 NG/ML (0.5-3.6) Test 12/04/16 13:23 12/05/16 07:44 Calcium Level 7.4 MG/DL (8.5-10.1) 8.1 MG/DL (8.5-10.1) Carbon Dioxide Level 15.4 MEQ/L (21.0-32.0) 12.1 MEQ/L (21.0-32.0) Anion Gap 20 MEQ/L (5-15) 19 MEQ/L (5-15) Protein Corrected Calcium 7.3 MG/DL (8.5-10.1) Total Creatine Kinase 2509 U/L (39-308) Creatine Kinase MB 9.2 NG/ML (0.5-3.6) Troponin I LESS THAN 0.02 NG/ML Platelet Count 76 TH/MM3 (150-450) Neutrophils (%) (Auto) 74.9 % (16.0-70.0) Monocytes (%) (Auto) 10.4 % (0.0-8.0) Random Glucose 164 MG/DL (74-106) Aspartate Amino Transf (AST/SGOT) 145 U/L (15-37) Alanine Aminotransferase (ALT/SGPT) 117 U/L (12-78) Total Bilirubin 1.6 MG/DL (0.2-1.0) Sodium Level 133 MEQ/L (136-145) Imaging Last Impressions Liver Ultrasound 12/04/16 0000 Signed Impressions: Service Date/Time: November 14:49 - CONCLUSION: 1. Hepatomegaly with hyperechoic echotexture characteristic of steatosis. 2. No evidence of cholelithiasis or biliary obstructive disease. 3. Incomplete visualization of the pancreas. Louie Lau MD Objective Remarks GENERAL: very pleasant, WDWN, obese male who was in NAD SKIN: Warm and dry. HEAD: Atraumatic. Normocephalic. EYES: Pupils equal and round. EOMI. No scleral icterus. mild bilateral injection , no drainage. ENT: No nasal bleeding or discharge. no active gum bleeding. Mucous membranes pink and moist. NECK: Trachea midline. No JVD. CARDIOVASCULAR: Regular rate and rhythm. S1 and S2 heard, no murmurs, gallops, rubs RESPIRATORY: No accessory muscle use. Clear to auscultation. Breath sounds equal bilaterally. GASTROINTESTINAL: Abdomen soft, non-tender, nondistended. Hepatic and splenic margins not palpable. MUSCULOSKELETAL: Able to move all 4 extremities with no difficulty, without clubbing, cyanosis, or edema. No obvious deformities. NEUROLOGICAL: Awake and alert. No obvious cranial nerve deficits. Motor grossly within normal limits. Five out of 5 muscle strength in the arms and legs. Normal speech. PSYCHIATRIC: Appropriate mood and affect; insight and judgment normal. No suicidal ideations or thoughts of harm at this time. Medications and IVs Current Medications Medications (Trade) Dose Ordered Sig/Gemini Route Start Time Stop Time Status Last Admin (Lopressor Inj) 5 mg Q5M PRN IV PUSH 12/04/16 00:45 12/04/16 01:37 (Glucotrol) 5 mg DAILYAC PO 12/04/16 08:00 12/05/16 08:36 (Tenormin) 25 mg DAILY PO 12/04/16 09:00 12/05/16 08:35 (Prinivil) 10 mg DAILY PO 12/04/16 09:00 12/05/16 08:35 (Catapres) 0.1 mg Q12HR PRN PO 12/04/16 00:45 12/05/16 01:41 Diltiazem HCl 125 mg/Sodium Chloride 125 ml @ 5 mls/hr TITRATE PRN IV 12/04/16 04:15 12/04/16 05:04 (NS Flush) 2 ml UNSCH PRN IV FLUSH 12/04/16 05:00 (NS Flush) 2 ml BID IV FLUSH 12/04/16 09:00 12/04/16 21:00 (Narcan Inj) 0.4 mg UNSCH PRN IV PUSH 12/04/16 05:00 (Librium) 25 mg TID PO 12/04/16 09:00 12/05/16 08:36 (D50w (Vial) Inj) 50 ml UNSCH PRN IV PUSH 12/04/16 05:00 (Glucagon Inj) 1 mg UNSCH PRN OTHER 12/04/16 05:00 (NovoLOG SUPPLEMENTAL SCALE) 1 ACHS SLIDING SCALE SQ 12/04/16 08:00 12/05/16 08:00 (Cardizem) 30 mg Q6HR PO 12/04/16 12:00 12/05/16 06:40 (Phenergan) 25 mg Q6H PRN PO 12/04/16 11:15 12/05/16 06:40 (Reglan Inj) 5 mg Q8H PRN IV PUSH 12/04/16 18:15 12/04/16 18:36 Sodium Chloride 1,000 ml @ 100 mls/hr Q10H IV 12/04/16 18:15 12/05/16 07:00 (Librium) 50 mg Q6H PRN PO 12/04/16 18:15 (Chloraseptic Valorie) 1 lozenge UNSCH PRN BUCCAL 12/05/16 01:15 12/05/16 08:36 A/P Assessment and Plan Alcohol Abuse- stable on librium per ciwa protocol monitor for symptoms of DT discussed hazards of alcohol, tobacco, and illicit drug use counseled regarding cessation of alcohol, tobacco, and illicit drug use Suicidal Ideation- none presently follow up with psych Atrial fibrillation with RVR - stable cont IV cardizem monitor telemetry follow up 2D echo results Diabetes Mellitus- continue home meds ISS daily accuchecks Dyslipidemia- continue home meds Hepatomegaly/Steatosis- liver US reviewed poss secondary to alcohol use monitor LFT's Elevated LFT's poss secondary to alcohol use vs hepatitis vs dyslipidemia follow up hep profile results monitor LFTs Rhabdomyolysis- CPK increased from 2280 to 2509 follow labs cont IVF monitor renal function Hypocalcemia- mildly improved 8.1 monitor labs supplement as needed Hyponatremia- Na 133 cont IVF monitor labs Thrombocytopenia poss secondary to alcohol abuse monitor labs Nausea poss 2/2 alcohol withdrawal cont phenergan as needed Paresthesias of toes and fingers poss secondary to hypocalcemia vs hyponatremia vs alcohol withdrawal supplement as needed monitor labs Marli Cabrera M3 Dec 05, 2016 09:10
[2016-12-05 13:14] LABS: CKMB 8.4 NG/ML (0.5-3.6)
--- NOTE | 2016-12-05 17:32 | PD.PSY.CON ---
Provisional Diagnosis Admission Date Dec 04, 2016 at 05:03 Miller I. Alcohol use disorder, alcohol induced mood disorder Miller II. Deferred Miller III. Diabetes, hypertension, A. fib History of Present Illness Service Psychiatry Consult Requested By Reason for Consult Lopez acted Primary Care Physician No Primary Care Physician HPI The patient is a 41 year old man, domiciled, single, unemployed, with psychiatric history of alcohol use disorder, anxiety, no previous psychiatric hospitalizations, no previous suicidal attempts, history of detox/ rehabilitation see the past, with past medical history of of DM, GERD, depression/anxiety, paroxysmal Afib who was brought in as a Lopez Act. Patient with SI. Also was found with Afib with RVR. Consulted to psychiatry for initial suicidal ideation. On psychiatric evaluation patient is calm, cooperative and pleasant. Patient says that he was recently are from his job, relapse in alcohol binge. He says that he was working for many years ago job, he left his job to go to a rehabilitation program for 1 month, and when he came back he was fired. Patient understand that his main problem in his life his alcoholism. He denies depressive symptoms, he denies anhedonia, patient is future oriented, he wants to get better, he denies suicidal and homicidal ideation, he denies visual and auditory hallucinations. Patient is oriented 3 , no fluctuation of consciousness. Review of Systems Constitutional: DENIES: Diaphoretic episodes, Fatigue, Fever, Weight gain, Weight loss, Chills, Dizziness, Change in appetite, Night Sweats Endocrine: DENIES: Heat/cold intolerance, Polydipsia, Polyuria, Polyphagia Ears, nose, mouth, throat: DENIES: Tinnitus, Hearing loss, Vertigo, Nasal discharge, Oral lesions, Throat pain, Hoarseness, Ear Pain, Running Nose, Epistaxis, Sinus Pain, Toothache, Odynophagia Respiratory: DENIES: Apneas, Cough, Snoring, Wheezing, Hemoptysis, Sputum production, Shortness of breath Cardiovascular: DENIES: Chest pain, Palpitations, Syncope, Dyspnea on Exertion , PND, Lower Extremity Edema, Orthopnea, Claudication Gastrointestinal: DENIES: Abdominal pain, Black stools, Bloody stools, Constipation, Diarrhea, Nausea, Vomiting, Difficulty Swallowing, Anorexia Genitourinary: DENIES: Sexual dysfunction, Urinary frequency, Urinary incontinence, Urgency, Hematuria, Dysuria, Nocturia, Penile Discharge, Testicular Pain, Testicular Swelling Musculoskeletal: DENIES: Joint pain, Muscle aches, Stiffness, Joint Swelling, Back pain, Neck pain Integumentary: DENIES: Abnormal pigmentation, Nail changes, Pruritus, Rash Hematologic/lymphatic: DENIES: Bruising, Lymphadenopathy Immunologic/allergic: DENIES: Eczema, Urticaria Neurologic: DENIES: Abnormal gait, Headache, Localized weakness, Paresthesias, Seizures, Speech Problems, Tremor, Poor Balance Psychiatric: DENIES: Anxiety, Confusion, Mood changes, Depression, Hallucinations, Agitation, Suicidal Ideation, Homicidal Ideation, Delusions Past Family Social History Coded Allergies: lorazepam (Verified Allergy, Unknown, 12/04/16) states he hallucinates metformin (Verified Allergy, Unknown, 12/04/16) Active Scripts Chlordiazepoxide HCl (Chlordiazepoxide HCl) 25 Mg Capsule, 25 MG PO Q8HR Y for alcohol withdrawals, #14 MG Prov:Bridget Morrison MD 12/05/16 Promethazine (Phenergan) 25 Mg Tablet, 25 MG PO Q12HR Y for nausea, #30 MG Prov:Bridget Morrison MD 12/05/16 Diltiazem (Cardizem) 30 Mg Tab, 30 MG PO Q6HR for afib, #60 TAB Prov:Bridget Morrison MD 12/05/16 Reported Medications Atenolol (Atenolol) 25 Mg Tab, 25 MG PO BID for Blood Pressure Management, #60 TAB 0 Refills 12/04/16 Simvastatin (Simvastatin) 5 Mg Tab, 5 MG PO DAILY for Cholesterol Management, # 30 TAB 0 Refills 12/04/16 Lisinopril (Lisinopril) 2.5 Mg Tab, PO DAILY, #30 TAB 0 Refills 12/04/16 Glipizide ER (Glipizide ER) 5 Mg Jimmy, 5 MG PO DAILY for Blood Sugar Management , #30 TAB 0 Refills Take with breakfast or first main meal of the day. 12/04/16 Current Medications Medications (Trade) Dose Ordered Sig/Gemini Route Start Time Stop Time Status Last Admin (Lopressor Inj) 5 mg Q5M PRN IV PUSH 12/04/16 00:45 12/04/16 01:37 (Glucotrol) 5 mg DAILYAC PO 12/04/16 08:00 12/05/16 08:36 (Tenormin) 25 mg DAILY PO 12/04/16 09:00 12/05/16 08:35 (Prinivil) 10 mg DAILY PO 12/04/16 09:00 12/05/16 08:35 (Catapres) 0.1 mg Q12HR PRN PO 12/04/16 00:45 12/05/16 01:41 Diltiazem HCl 125 mg/Sodium Chloride 125 ml @ 5 mls/hr TITRATE PRN IV 12/04/16 04:15 12/04/16 05:04 (NS Flush) 2 ml UNSCH PRN IV FLUSH 12/04/16 05:00 (NS Flush) 2 ml BID IV FLUSH 12/04/16 09:00 12/04/16 21:00 (Narcan Inj) 0.4 mg UNSCH PRN IV PUSH 12/04/16 05:00 (Librium) 25 mg TID PO 12/04/16 09:00 12/05/16 11:59 (D50w (Vial) Inj) 50 ml UNSCH PRN IV PUSH 12/04/16 05:00 (Glucagon Inj) 1 mg UNSCH PRN OTHER 12/04/16 05:00 (NovoLOG SUPPLEMENTAL SCALE) 1 ACHS SLIDING SCALE SQ 12/04/16 08:00 12/05/16 11:59 (Cardizem) 30 mg Q6HR PO 12/04/16 12:00 12/05/16 11:59 (Phenergan) 25 mg Q6H PRN PO 12/04/16 11:15 12/05/16 12:03 (Reglan Inj) 5 mg Q8H PRN IV PUSH 12/04/16 18:15 12/04/16 18:36 Sodium Chloride 1,000 ml @ 100 mls/hr Q10H IV 12/04/16 18:15 12/05/16 14:15 (Librium) 50 mg Q6H PRN PO 12/04/16 18:15 (Chloraseptic Valorie) 1 lozenge UNSCH PRN BUCCAL 12/05/16 01:15 12/05/16 08:36 Family Psych History Mother was alcoholic Social History This [place], he lives in [place] alone, his single, at this moment unemployed, his highest level of education is some college Patient's Strengths (min. 2) Verbal communication Physical Exam Vital Signs Vital Signs Date Time Temp Pulse Resp B/P (MAP) Pulse Ox O2 Delivery O2 Flow Rate FiO2 12/05/16 16:13 87 12/05/16 15:00 98.5 18 130/80 (97) 98 12/05/16 07:00 Room Air I/O 12/05/16 12/05/16 12/05/16 07:59 15:59 23:59 Intake Total 600 ml 120 ml Output Total 1400 ml Balance -800 ml 120 ml Lab Results Test 12/05/16 07:44 White Blood Count 7.2 TH/MM3 Red Blood Count 5.02 MIL/MM3 Hemoglobin 15.8 GM/DL Hematocrit 45.9 % Mean Corpuscular Volume 91.4 FL Mean Corpuscular Hemoglobin 31.4 PG Mean Corpuscular Hemoglobin Concent 34.3 % Red Cell Distribution Width 14.8 % Platelet Count 76 TH/MM3 Mean Platelet Volume 8.3 FL Neutrophils (%) (Auto) 74.9 % Lymphocytes (%) (Auto) 13.6 % Monocytes (%) (Auto) 10.4 % Eosinophils (%) (Auto) 0.7 % Basophils (%) (Auto) 0.4 % Neutrophils # (Auto) 5.4 TH/MM3 Lymphocytes # (Auto) 1.0 TH/MM3 Monocytes # (Auto) 0.8 TH/MM3 Eosinophils # (Auto) 0.0 TH/MM3 Basophils # (Auto) 0.0 TH/MM3 CBC Comment AUTO DIFF Differential Comment AUTO DIFF CONFIRMED Blood Urea Nitrogen 7 MG/DL Creatinine 0.73 MG/DL Random Glucose 164 MG/DL Total Protein 7.9 GM/DL Albumin 3.7 GM/DL Calcium Level 8.1 MG/DL Alkaline Phosphatase 97 U/L Aspartate Amino Transf (AST/SGOT) 145 U/L Alanine Aminotransferase (ALT/SGPT) 117 U/L Total Bilirubin 1.6 MG/DL Sodium Level 133 MEQ/L Potassium Level 3.6 MEQ/L Chloride Level 102 MEQ/L Carbon Dioxide Level 12.1 MEQ/L Anion Gap 19 MEQ/L Estimat Glomerular Filtration Rate 119 ML/MIN Total Creatine Kinase 1934 U/L Creatine Kinase MB 8.4 NG/ML Creatine Kinase MB % 0.4 % Mental Status Examination Appearance: Appropriate Consciousness: Alert Orientation: x4 Motor Activity: Normal gait Speech: Unremarkable Language: Adequate Fund of Knowledge: Adequate Attention and Concentration: Adequate Memory: Unremarkable Mood: Appropriate Affect: Appropriate Thought Process & Associations: Intact Thought Content: Appropriate Hallucination Type: None Delusion Type: None Suicidal Ideation: No Suicidal Plan: No Suicidal Intention: No Homicidal Ideation: No Homicidal Plan: No Homicidal Intention: No Insight: Adequate Judgment: Adequate Assessment & Plan Problem List: (1) Alcohol abuse with alcohol-induced mood disorder ICD Codes: F10.14 - Alcohol abuse with alcohol-induced mood disorder Assessment & Plan: On psychiatric evaluation today the patient does not present any acute, concerning or significant symptomatology of depression, anxiety, jj or psychosis. He denies suicidal or homicidal ideation, he denies visual and auditory hallucinations. Recent suicidal statement history related with alcohol intoxication and no secondary to a major psychiatric illness decompensation. She is now future oriented, logical, coherent and relevant. Motivated to continue treatment for alcoholism. Education and support provided. Continue CIWA. Lopez act will be lifted. Assessment & Plan Estimated LOS: Cliff Casillas MD Dec 05, 2016 17:32
[2016-12-05] MEDS ORDERED: ASPI81TA11 PO (17:45)
--- NOTE | 2016-12-05 20:01 | ECHRPT ---
Indication: atrial fib CONCLUSIONS The left ventricular systolic function is normal with an estimated ejection fraction in the range of 55-60%. Mild concentric left ventricular hypertrophy. There is trace tricuspid valve regurgitation. Trivial pulmonary valve regurgitation. BP: 182 / 88 HR: 102 Rhythm: Sinus MEASUREMENTS (Male / Female) Normal Values Technical Quality:Fair 2D ECHO LV Diastolic Diameter PLAX 5.1 cm 4.2 - 5.9 / 3.9 - 5.3 cm LV Systolic Diameter PLAX 3.7 cm IVS Diastolic Thickness 1.2 cm 0.6 - 1.0 / 0.6 - 0.9 cm LVPW Diastolic Thickness 1.2 cm 0.6 - 1.0 / 0.6 - 0.9 cm LV Relative Wall Thickness 0.5 LVOT Diameter 1.9 cm LA Systolic Diameter LX 3.8 cm 3.0 - 4.0 / 2.7 - 3.8 cm LV Ejection Fraction MOD 4C 54.5 % LV Cardiac Index MOD 4C 2758.2 cm/minm LV Ejection Fraction 4C AL 55.4 % LV Cardiac Index 4C AL 2934.7 cm/minm M-MODE Aortic Root Diameter MM 3.2 cm AV Cusp Separation MM 2.6 cm DOPPLER AV Peak Velocity 194.0 cm/s AV Peak Gradient 15.1 mmHg AV Mean Gradient 7.0 mmHg AV Velocity Time Integral 29.7 cm LVOT Peak Velocity 176.0 cm/s LVOT Peak Gradient 12.4 mmHg LVOT Velocity Time Integral 29.6 cm LVOT Cardiac Index 3170.9 cm/minm AV Area Cont Eq vti 2.8 cm AV Area Cont Eq pk 2.6 cm MV Area PHT 3.0 cm Mitral E Point Velocity 105.0 cm/s Mitral A Point Velocity 68.6 cm/s Mitral E to A Ratio 1.5 LV E' Lateral Velocity 13.9 cm/s Mitral E to LV E' Lateral Ratio 7.6 LV E' Septal Velocity 9.6 cm/s Mitral E to LV E' Septal Ratio 11.0 TR Peak Velocity 144.0 cm/s TR Peak Gradient 8.3 mmHg Right Atrial Pressure 10.0 mmHg Pulmonary Artery Systolic Pressu 18.3 mmHg Right Ventricular Systolic Press 18.3 mmHg PV Peak Velocity 130.0 cm/s PV Peak Gradient 6.8 mmHg FINDINGS LEFT VENTRICLE The left ventricular systolic function is normal with an estimated ejection fraction in the range of 55-60%. Normal left ventricular size. Mild concentric left ventricular hypertrophy. No grossly abnormal regional wall motion abnormalities are present. RIGHT VENTRICLE The right ventricle was not well visualized. LEFT ATRIUM The left atrial size is upper limits of normal. RIGHT ATRIUM The right atrium is not well visualized. ATRIAL SEPTUM Normal atrial septal thickness. AORTA The aortic root and proximal ascending aorta are normal in size on limited imaging. MITRAL VALVE Structurally normal mitral valve. No mitral valve stenosis or regurgitation. AORTIC VALVE Trileaflet aortic valve. No aortic valve stenosis or regurgitation. TRICUSPID VALVE Structurally normal tricuspid valve. No tricuspid valve stenosis. There is trace tricuspid valve regurgitation. The estimated pulmonary arterial pressure is 18.3 mmHg. PULMONARY VALVE The pulmonary valve is not well visualized. Trivial pulmonary valve regurgitation. VESSELS The inferior vena cava is normal in size. PERICARDIUM No pericardial effusion. Ernesto Freeman DO (Electronically Signed) Final Date:05 December 2016 20:01
== END 2016-12-05 19:35 | disposition home or self-care (01) | DRG 309 ==
LOC: NEPD 00:09 → NEDA 05:03 → N03A 09:13 → HCIN 16:25
PROVIDERS: ADMIT Hospitalist; ATTEND Hospitalist
DX: I48.0 Paroxysmal atrial fibrillation (principal); Z68.41 Body mass index [BMI] 40.0-44.9, adult; E87.2 Acidosis; M62.82 Rhabdomyolysis; R45.851 Suicidal ideations; D69.6 Thrombocytopenia, unspecified; E87.1 Hypo-osmolality and hyponatremia; F10.230 Alcohol dependence with withdrawal, uncomplicated; F10.24 Alcohol dependence with alcohol-induced mood disorder; E66.01 Morbid (severe) obesity due to excess calories; K21.9 Gastro-esophageal reflux disease without esophagitis; E11.9 Type 2 diabetes mellitus without complications; F32.9 Major depressive disorder, single episode, unspecified; F41.9 Anxiety disorder, unspecified; F17.210 Nicotine dependence, cigarettes, uncomplicated; Y90.8 Blood alcohol level of 240 mg/100 ml or more; E83.51 Hypocalcemia; E78.5 Hyperlipidemia, unspecified; G47.30 Sleep apnea, unspecified; I10 Essential (primary) hypertension; R16.0 Hepatomegaly, not elsewhere classified; Z79.84 Long term (current) use of oral hypoglycemic drugs; F10.220 Alcohol dependence with intoxication, uncomplicated
CPT/HCPCS: 76705; 80048; 80053; 80074; 80307; 82550; 82552; 82948; 84155; 84443; 84484; 85025; 85610; 85730; 93005; 93306; 96361; 96374; 96375; 96376; J0610; J1815; J2405; J2765; J7030; Q0169